=== PATIENT | female | born 1965 | race Caucasian/White ===

== ENCOUNTER 2020-12-04 16:14 | Emergency (ER) | payer OTHER ==
[~2020-12-04] VITALS: Ht 170.2 cm; Wt 49.9 kg
[2020-12-04] MEDS ORDERED: SULTRIDS PO (16:59)
[2020-12-04] MEDS ORDERED: CEPH500 PO (16:59)
== END 2020-12-04 17:15 | disposition home or self-care (01) ==
LOC: ER 16:14
DX: F15.959 Other stimulant use, unspecified with stimulant-induced psychotic disorder, unspecified (principal); L03.116 Cellulitis of left lower limb
CPT/HCPCS: 99282